=== PATIENT | female | born 1945 | race Caucasian/White ===

== ENCOUNTER 2016-03-09 16:39 | Emergency (ER) | payer OTHER, MEDICAID ==
[~2016-03-09] VITALS: Wt 63.4 kg
[~2016-03-09 16:39] MED LIST: ATOR10TA65 PO; BENA40TA41 PO; HYDR-762 PO; ISOS30TA5 PO; LORA1TAB PO; MECL25TA2 PO; ZOF8 PO
[2016-03-09] MEDS ORDERED: ONDANSETRON 4 MG INJ IV STA (18:39)
[2016-03-09] MEDS ORDERED: SOD CHLORIDE 0.9% 1,000 ML IV STA (18:39)
[2016-03-09] MEDS ORDERED: MECLIZINE 12.5 MG TAB PO ONE (19:00)
--- NOTE | 2016-03-09 19:02 | RADRPT ---
PROCEDURE: CR, chest CLINICAL INDICATION: Cough/abdomen pain. TECHNIQUE: AP chest. COMPARISON: Chest, 01/08/2016. FINDINGS: The heart is not enlarged. There is no acute infiltrate in the lungs. No pleural effusion. There is calcified atherosclerosis of the aortic arch. IMPRESSION: 1. Unremarkable chest x-ray. 2. Calcified atherosclerosis of the aortic arch. RPTAT: GG .Kevin Carmichael MD, MD Date Time Electronically viewed and signed by .Kevin Carmichael MD, MD on 03/09/2016 19:02 .Y/
[2016-03-09 19:35] LABS: BASOPHILS % 0.3 % (0.0-2.0); EOSINOPHILS # 0.1 10^3/ul (0.0-0.5); HEMATOCRIT 33.7 % (37.0-47.0); HEMOGLOBIN 11.4 g/dl (12.0-16.0); LYMPHOCYTES # 2.2 10^3/ul (0.8-2.9); LYMPHOCYTES % 39.4 % (15.0-51.0); MEAN CORPUSCULAR HEMOGLOBIN 28.1 pg (29.0-33.0); MEAN CORPUSCULAR HGB CONC 33.9 g/dl (32.0-37.0); MEAN CORPUSCULAR VOLUME 82.8 fl (82.0-101.0); MONOCYTE # 0.5 10^3/ul (0.3-0.9); MONOCYTES % 8.7 % (0.0-11.0); NEUTROPHIL # 2.7 10^3/ul (1.6-7.5); NEUTROPHILS % 49.6 % (39.0-77.0); PLATELET COUNT 241 10^3/UL (140-440); RED BLOOD COUNT 4.07 10^6/ul (4.20-5.40); RED CELL DISTRIBUTION WIDTH 15.5 % (11.5-14.5); UNCORRECTED WBC 5.5 10^3/ul (4.8-10.8); WHITE BLOOD COUNT 5.5 10^3/ul (4.8-10.8)
[2016-03-09 19:38] LABS: CONDITION 1; LH ANALYZER COMMENTS 1
[2016-03-09 19:44] LABS: ALBUMIN 4.3 g/dl (3.3-4.9); CHLORIDE 96 mmol/L (97-110); POTASSIUM 4.4 mmol/L (3.5-5.1); SODIUM 139 mmol/L (135-144)
[2016-03-09 19:46] LABS: BILIRUBIN,INDIRECT 0.2 mg/dl (0-1.1); BILIRUBIN,TOTAL 0.2 mg/dl (0.2-1.3); CREATININE 0.69 mg/dl (0.44-1.00)
[2016-03-09 19:47] LABS: ALANINE AMINOTRANSFERASE 27 IU/L (13-69); ALBUMIN/GLOBULIN RATIO 1.19; ALKALINE PHOSPHATASE 91 IU/L (42-121); ANION GAP 16 (8-16); ASPARTATE AMINO TRANSFERASE 35 IU/L (15-46); BLOOD UREA NITROGEN 18 mg/dl (7-20); CALCIUM 9.9 mg/dl (8.4-10.2); CARBON DIOXIDE 31 mmol/L (21-31); GLUCOSE 112 mg/dl (70-220); TOTAL PROTEIN 7.9 g/dl (6.1-8.1)
[2016-03-09 19:49] LABS: INR 1.03; PROTIME 13.5 Sec (12.2-14.2); PT RATIO 1.1
[2016-03-09 19:50] LABS: PARTIAL THROMBOPLASTIN TIME 26.5 Sec (25.0-35.0)
--- NOTE | 2016-03-09 20:06 | RADRPT ---
PROCEDURE: CT Brain without contrast. CLINICAL INDICATION: CALI, dizziness TECHNIQUE: A CT of the brain was performed utilizing axial imaging from the skull base through the vertex without IV contrast. Multiplanar reformatted images were made. Images were reviewed on a [facility] workstation. The CTDIvol is 45 mGy and the DLP is 720 mGycm. COMPARISON: Head CT January 15, 2015 FINDINGS: There is mild to moderate age appropriate diffuse cerebral volume loss with sulcal and ventricular d ilatation. No discrete extra-axial fluid collection or masses present. The ventricles are in the m idline and of normal contour and configuration. No intra-axial masses or regions of abnormal attenu ation are seen. There is no intracranial hemorrhage. There is normal aeration of the visualized paranasal sinuses. IMPRESSION: Atrophy. No intracranial hemorrhage or mass. .Kevin Schreiber MD, MD Date Time Electronically viewed and signed by .Kevin Schreiber MD, MD on 03/09/2016 20:06 .A/
[2016-03-09 20:10] LABS: TROPONIN-I < 0.012 ng/ml (0.00-0.12)
[2016-03-09 20:58] LABS: ADD UMIC YES; URINE BILIRUBIN (Dip) NEGATIVE (NEGATIVE); URINE BLOOD (Dip) TRACE (NEGATIVE); URINE COLOR LT. YELLOW (YELLOW); URINE GLUCOSE (Dip) NEGATIVE (NEGATIVE); URINE KETONES (Dip) NEGATIVE (NEGATIVE); URINE LEUKOCYTE ESTERASE (Dip) 1+ (NEGATIVE); URINE NITRITE (Dip) NEGATIVE (NEGATIVE); URINE TOTAL PROTEIN (Dip) NEGATIVE (NEGATIVE); URINE UROBILINOGEN (Dip) 0.2 E.U./dL (0.1-1.0)
[2016-03-09 21:07] LABS: SQUAMOUS EPITHELIAL CELL,UR RARE; URINE RBCS 0-2 /HPF (0)
[2016-03-09] MEDS ORDERED: ONDA4TAB14 PO (21:18)
[2016-03-09] MEDS ORDERED: MECL-77 PO (21:18)
--- NOTE | 2016-03-09 21:29 | ERD ---
ER Documentation Chief Complaint Date/Time DATE: 03/09/16 TIME: 21:21 Chief Complaint HEADACHE AND FEELING DIZZY SINCE THIS MORNING. NO NEURO DEFICIT. HPI This 70-year-old female presents with flulike the room is spinning and nausea since early this morning. She does not really have a headache. States when she tries to walk she has trouble because she feels like she is going to fall to the right. She has no focal weakness. Denies chest pain or shortness of breath. He is had no fevers or chills recently. ROS All systems reviewed and are negative except as per history of present illness. Medications Home Meds Active Scripts Ondansetron (Ondansetron Odt) 4 Mg Tab.rapdis, 4 MG PO Q6H Y for NAUSEA AND/OR VOMITING, #10 TAB Prov:JAZMYN PEREZ DO 03/09/16 Meclizine Hcl* (Meclizine Hcl*) 25 Mg Tablet, 25 MG PO Q8H Y for DIZZINESS, #30 TAB Prov:JAZMYN PEREZ DO 03/09/16 Lorazepam* (Lorazepam*) 1 Mg Tablet, 1 MG PO Q8H Y for ANXIETY, #10 TAB Prov:JOSE AU 01/08/16 Hydrocodone Bit-Acetaminophen* ([place]*) 10-325 Mg Tablet, 1 TAB PO Q6 Y for PAIN , #16 TAB Prov:TRAVIS WHITE MD 01/15/15 Ondansetron Hcl* (Zofran* ODT) 8 mg -ODT Tab.disper, 8 MG PO Q6 Y for NAUSEA AND /OR VOMITING, #10 TAB Prov:JACQUELINE LUQUE MD 12/23/14 Meclizine Hcl* (Antivert*) 25 Mg Tablet, 50 MG PO Q6H for DIZZINESS, #20 TAB Prov:JACQUELINE LUQUE MD 12/23/14 Reported Medications Atorvastatin Calcium (Atorvastatin Calcium) 10 Mg Tablet, 10 MG PO QHS, #30 TAB 01/15/15 Isosorbide Mononitrate* (Isosorbide Mononitrate*) 30 Mg Tab.er.24h, 30 MG PO DAILY, TAB 02/10/14 Benazepril Hcl* (Benazepril Hcl*) 40 Mg Tablet, 40 MG PO DAILY, TAB 02/10/14 Allergies Allergies: Coded Allergies: Penicillins (Verified Allergy, Mild, RASH, 01/15/15) aspirin (Verified Allergy, Mild, RAPID HEART RATE, 01/15/15) atenolol (Verified Allergy, Unknown, 01/15/15) PMhx/Soc History of Surgery: Yes (LEFT AND RIGHT 2011, LEFT FOOT, CHOLECYSTECTOMY) Anesthesia Reaction: No Hx Neurological Disorder: No Hx Respiratory Disorders: No Hx Cardiac Disorders: Yes (HTN, HIGH CHOLESTEROL) Hx Psychiatric Problems: No Hx Miscellaneous Medical Probl: No Hx Alcohol Use: No Hx Substance Use: No Hx Tobacco Use: No Physical Exam Vitals Vital Signs Date Time Temp Pulse Resp B/P Pulse Ox O2 Delivery O2 Flow Rate FiO2 03/09/16 16:44 98.3 90 20 134/63 99 Physical Exam Const: [] No distress Head: Atraumatic Eyes: Normal Conjunctiva, EOMI, PRL ENT: Normal External Ears, Nose and Mouth. Neck: Full range of motion..~ No meningismus. Resp: Clear to auscultation bilaterally Cardio: Regular rate and rhythm, no murmurs Abd: Soft, non tender, non distended. Normal bowel sounds Skin: No petechiae or rashes Back: No midline or flank tenderness Ext: No cyanosis, or edema Neur: Awake and alert and oriented 3, no focal deficits, para nerves difficult intact, cerebellar finger-nose normal Psych: Normal Mood and Affect Result Diagram: 03/09/16191903/09/161919 Results 24 hrs Laboratory Tests Test 03/09/16 19:20 03/09/16 20:35 Activated Partial Thromboplast Time 26.5Sec Alanine Aminotransferase (ALT/SGPT) 27IU/L Albumin 4.3g/dl Albumin/Globulin Ratio 1.19 Alkaline Phosphatase 91IU/L Anion Gap 16 Aspartate Amino Transf (AST/SGOT) 35IU/L Basophils # 0.010^3/ul Basophils % 0.3% Blood Morphology Comment Blood Urea Nitrogen 18mg/dl Calcium Level 9.9mg/dl Carbon Dioxide Level 31mmol/L Chloride Level 96mmol/L Creatinine 0.69mg/dl Direct Bilirubin 0.00mg/dl Eosinophils # 0.110^3/ul Eosinophils % 2.0% Globulin 3.60g/dl Glucose Level 112mg/dl Hematocrit 33.7% Hemoglobin 11.4g/dl INR International Normalized Ratio 1.03 Indirect Bilirubin 0.2mg/dl Lactic Acid Level 0.8mmol/L Lipase 77U/L Lymphocytes # 2.210^3/ul Lymphocytes % 39.4% Mean Corpuscular Hemoglobin 28.1pg Mean Corpuscular Hemoglobin Concent 33.9g/dl Mean Corpuscular Volume 82.8fl Mean Platelet Volume 8.0fl Monocytes # 0.510^3/ul Monocytes % 8.7% Neutrophils # 2.710^3/ul Neutrophils % 49.6% Nucleated Red Blood Cells # 0.010^3/ul Nucleated Red Blood Cells % 0.0/100WBC Platelet Count 04404^3/UL Potassium Level 4.4mmol/L Prothrombin Time 13.5Sec Prothrombin Time Ratio 1.1 Red Blood Count 4.0710^6/ul Red Cell Distribution Width 15.5% Sodium Level 139mmol/L Total Bilirubin 0.2mg/dl Total Protein 7.9g/dl Troponin I < 0.012ng/ml White Blood Count 5.510^3/ul Urine Bilirubin NEGATIVE Urine Clarity CLEAR Urine Color LT. YELLOW Urine Glucose NEGATIVE% Urine Hemoglobin TRACE Urine Ketones NEGATIVE Urine Leukocyte Esterase 1+ Urine Microscopic RBC 0-2/HPF Urine Microscopic WBC 5-10/HPF Urine Nitrite NEGATIVE Urine Specific [place] 1.010 Urine Squamous Epithelial Cells RARE Urine Total Protein NEGATIVE Urine Urobilinogen 0.2 E.U./dL Urine pH 6.0 Current Medications Medications (Trade) Dose Ordered Sig/Silver Route PRN Reason Start Time Stop Time Status Last Admin Dose Admin Sodium Chloride (NS) 1,000 ml @ 1,000 mls/hr Q1H STAT IV 03/09/16 18:39 03/09/16 19:38 DC 03/09/16 19:36 Ondansetron HCl (Zofran Inj) 4 mg ONCE STAT IV 03/09/16 18:39 03/09/16 18:40 DC 03/09/16 19:35 Meclizine HCl (Antivert) 25 mg ONCE ONCE PO 03/09/16 19:00 03/09/16 19:01 DC 03/09/16 19:35 Procedures/MDM Likely inner ear causes of vertigo and 15-year-old female. His abrasion risk factors neurovascular and cerebrovascular causes were tested for. Patient was given Zofran IV as well as an Antivert pill. After this she stated that she felt much better and asked if she could have a prescription for the same medication because it worked so well. She has no signs of cardiac ischemia stable on the monitor. CT is negative for any acute process. I discharged with primary care follow-up as well as return precautions for hospital. I'm giving her prescription for Zofran ODT as well as Antivert 25 mg. Recommending ENT follow-up through her regular doctor in both verbal and written instructions. EKG interpretation: Normal sinus rhythm 68, normal axis, no ST-T wave changes concerning for acute ischemia, normal intervals. Normal EKG Cardio monitor interpretation: Sinus rhythm without arrhythmias Chest x-ray interpretation: No acute process, no widened mediastinum no pneumothorax, no pulmonary edema, no fractures. Mild cardiomegaly and at this process of the aorta. CT head interpretation by myself: I see no acute process no hemorrhage no mass effect no midline shift no skull fractures Departure Diagnosis: Primary Impression: Vertigo Additional Impressions: Nausea Dizziness Normocytic anemia Condition: Stable Patient Instructions: Inner Ear Problems: Causes of Dizziness (Vertigo), Vertigo, Unspecified Additional Instructions: Llame al doctor MAANA y oneyda analia DENG PARA DENTRO DE 2-3 CARDENAS. Consigue un referral para un ENT DOCTOR. Dgale a la secretaria que nosotros le instruimos hacer esta deng.Avise o llame si rosario condicin se empeora antes de la deng. Regresa aqui si peor o no mejor. JAZMYN PEREZ DO Mar 09, 2016 21:29
[2016-03-09 22:00] VITALS: BP 105/54; PULSE 65; RESP 18; TEMP 97.6
== END 2016-03-09 22:00 | disposition home or self-care (01) ==
LOC: E/R 16:39
DX: R42 Dizziness and giddiness (principal); D64.9 Anemia, unspecified; I10 Essential (primary) hypertension; R10.9 Unspecified abdominal pain
CPT/HCPCS: 70450; 71010; 80053; 81001; 83605; 83690; 84484; 85025; 85610; 85730; J2405; J7030; 36415; 81003; 93005; 96374

== ENCOUNTER 2016-07-03 07:28 | Emergency (ER) | payer OTHER, MEDICAID ==
[~2016-07-03] VITALS: Ht 154.9 cm; Wt 66.0 kg
[~2016-07-03 07:28] MED LIST changes: +MECL-77 PO; +ONDA4TAB14 PO
[2016-07-03 07:30] VITALS: Ht 154.9 cm; Wt 66.0 kg
[2016-07-03] MEDS ORDERED: SOD CHLORIDE 0.9% 1,000 ML IV STA (07:33)
[2016-07-03] MEDS ORDERED: morphine 2 MG INJ IV STA (07:33)
[2016-07-03] MEDS ORDERED: ONDANSETRON 4 MG INJ IV STA (07:33)
[2016-07-03 08:02] LABS: ADD SCAN DIFF NO
--- NOTE | 2016-07-03 08:02 | ERA ---
ER Documentation Chief Complaint Date/Time DATE: 07/03/16 TIME: 08:00 Chief Complaint nausea /vomiting with epigastric pain x 3 days HPI 71-year-old female who presents the emergency room with 3 days of symptoms that include nonbloody nonbilious emesis, epigastric abdominal discomfort and headache. Symptoms are moderate, persistent and not alleviated by benzodiazepine provided by her primary care physician. She denies any diarrhea or constipation, no abdominal surgical history, no chest pain no exertional symptoms and no shortness of breath. ROS All systems reviewed and are negative except as per history of present illness. Medications Home Meds Active Scripts Ondansetron (Ondansetron Odt) 4 Mg Tab.rapdis, 4 MG PO Q6H Y for NAUSEA AND/OR VOMITING, #30 TAB Prov:DONALD CABALLERO MD 07/03/16 Reported Medications Omeprazole* (Omeprazole*) 40 Mg Capsule.dr, 40 MG PO DAILY, #30 CAP 07/03/16 Bupropion Hcl* (Bupropion XL*) 300 Mg Tab.sr.24h, 300 MG PO DAILY, TAB.SA 07/03/16 Alprazolam* (Alprazolam*) 0.25 Mg Tablet, 0.25 MG PO DAILY Y for ANXIETY, TAB 07/03/16 Benazepril Hcl* (Benazepril Hcl*) 40 Mg Tablet, 40 MG PO DAILY, TAB 02/10/14 Discontinued Reported Medications Atorvastatin Calcium (Atorvastatin Calcium) 10 Mg Tablet, 10 MG PO QHS, #30 TAB 01/15/15 Isosorbide Mononitrate* (Isosorbide Mononitrate*) 30 Mg Tab.er.24h, 30 MG PO DAILY, TAB 02/10/14 Discontinued Scripts Ondansetron (Ondansetron Odt) 4 Mg Tab.rapdis, 4 MG PO Q6H Y for NAUSEA AND/OR VOMITING, #10 TAB Prov:JAZMYN PEREZ DO 03/09/16 Meclizine Hcl* (Meclizine Hcl*) 25 Mg Tablet, 25 MG PO Q8H Y for DIZZINESS, #30 TAB Prov:JAZMYN PEREZ DO 03/09/16 Lorazepam* (Lorazepam*) 1 Mg Tablet, 1 MG PO Q8H Y for ANXIETY, #10 TAB Prov:JOSE AU 01/08/16 Hydrocodone Bit-Acetaminophen* ([place]*) 10-325 Mg Tablet, 1 TAB PO Q6 Y for PAIN , #16 TAB Prov:TRAVIS WHITE MD 01/15/15 Ondansetron Hcl* (Zofran* ODT) 8 mg -ODT Tab.disper, 8 MG PO Q6 Y for NAUSEA AND /OR VOMITING, #10 TAB Prov:JACQUELINE LUQUE MD 12/23/14 Meclizine Hcl* (Antivert*) 25 Mg Tablet, 50 MG PO Q6H for DIZZINESS, #20 TAB Prov:JACQUELINE LUQUE MD 12/23/14 Allergies Allergies: Coded Allergies: Penicillins (Verified Allergy, Mild, RASH, 07/03/16) aspirin (Verified Allergy, Mild, RAPID HEART RATE, 07/03/16) atenolol (Verified Allergy, Unknown, 07/03/16) PMhx/Soc History of Surgery: Yes (R Shoulder Metal Plate,L Foot Plastic Plate, Cholecystectomy,) Anesthesia Reaction: No Hx Neurological Disorder: No Hx Respiratory Disorders: No Hx Cardiac Disorders: Yes (HTN) Hx Psychiatric Problems: No Hx Miscellaneous Medical Probl: Yes (Dyslipidemia) Hx Alcohol Use: No Hx Substance Use: No Hx Tobacco Use: No FmHx Family History: No diabetes Physical Exam Vitals Vital Signs Date Time Temp Pulse Resp B/P Pulse Ox O2 Delivery O2 Flow Rate FiO2 07/03/16 10:32 74 18 144/79 99 Room Air 07/03/16 08:01 66 17 147/66 100 Room Air 07/03/16 07:30 98.4 83 18 196/86 97 Physical Exam General: Well developed, well nourished, no acute distress Head: Normocephalic, atraumatic. Eyes: Pupils equally reactive, EOM intact ENT: Moist mucous membranes Neck: Supple, no lymphadenopathy Respiratory: Lungs clear bilaterally, no distress Cardiovascular: RRR, no murmurs, rubs, or gallops Abdominal: Soft, non-tender, non-distended, no peritoneal signs : Deferred MSK: No edema, no unilateral swelling, 5/5 strength Neurologic: Alert and oriented, moving all extremities, normal speech, no focal weakness, no cerebellar signs, no meningismus Skin: No rash Psych: Normal mood Result Diagram: 07/03/16 0740 07/03/16 0740 Results 24 hrs Laboratory Tests Test 07/03/16 07:40 07/03/16 09:54 White Blood Count 4.010^3/ul Red Blood Count 4.2610^6/ul Hemoglobin 12.6g/dl Hematocrit 38.3% Mean Corpuscular Volume 89.9fl Mean Corpuscular Hemoglobin 29.6pg Mean Corpuscular Hemoglobin Concent 32.9g/dl Red Cell Distribution Width 14.6% Platelet Count 94657^3/UL Mean Platelet Volume 9.6fl Neutrophils % 54.1% Lymphocytes % 35.7% Monocytes % 8.0% Eosinophils % 1.5% Basophils % 0.5% Nucleated Red Blood Cells % 0.0/100WBC Neutrophils # 2.210^3/ul Lymphocytes # 1.410^3/ul Monocytes # 0.310^3/ul Eosinophils # 0.110^3/ul Basophils # 0.010^3/ul Nucleated Red Blood Cells # 0.010^3/ul Sodium Level 139mmol/L Potassium Level 3.9mmol/L Chloride Level 103mmol/L Carbon Dioxide Level 26mmol/L Anion Gap 14 Blood Urea Nitrogen 11mg/dl Creatinine 0.80mg/dl Glucose Level 96mg/dl Calcium Level 10.3mg/dl Total Bilirubin 0.5mg/dl Direct Bilirubin 0.00mg/dl Indirect Bilirubin 0.5mg/dl Aspartate Amino Transf (AST/SGOT) 34IU/L Alanine Aminotransferase (ALT/SGPT) 44IU/L Alkaline Phosphatase 91IU/L Troponin I < 0.012ng/ml Total Protein 8.4g/dl Albumin 4.6g/dl Globulin 3.80g/dl Albumin/Globulin Ratio 1.21 Lipase 73U/L Urine Color LT. YELLOW Urine Clarity CLEAR Urine pH 6.5 Urine Specific [place] <=1.005 Urine Ketones NEGATIVE Urine Nitrite NEGATIVE Urine Bilirubin NEGATIVE Urine Urobilinogen 0.2 E.U./dL Urine Leukocyte Esterase 2+ Urine Microscopic RBC 0-2/HPF Urine Microscopic WBC 5-10/HPF Urine Squamous Epithelial Cells FEW Urine Bacteria FEW Urine Hemoglobin TRACE Urine Glucose NEGATIVE% Urine Total Protein NEGATIVE Current Medications Medications (Trade) Dose Ordered Sig/Silver Route PRN Reason Start Time Stop Time Status Last Admin Dose Admin Sodium Chloride (NS) 1,000 ml @ 1,000 mls/hr Q1H STAT IV 07/03/16 07:33 07/03/16 08:32 DC 07/03/16 07:47 Morphine Sulfate (morphine) 2 mg ONCE STAT IV 07/03/16 07:33 07/03/16 07:34 DC 07/03/16 07:48 Ondansetron HCl (Zofran Inj) 4 mg ONCE STAT IV 07/03/16 07:33 07/03/16 07:34 DC 07/03/16 07:47 Procedures/MDM EKG, MONITORS, & DIAGNOSTIC IMAGING: EKG: I reviewed and interpreted a 12-lead EKG. Rhythm: Normal sinus rhythm Ectopy: None Intervals: No abnormalities ST segments: No elevations or depressions T waves: No contiguous inversions Chest x-ray: I reviewed and interpreted a 1 view of the chest Mediastinum: No enlargement Cardiac silhouette: No cardiomegaly Airspace: Clear lung sherman bilaterally without evidence of pneumothorax Bones: No evidence of fracture CT abdomen and pelvis: IMPRESSION: 1. Liver demonstrates mild surface nodularity, concerning for possible cirrhosis. 2. Gallbladder is surgically absent. 3. Aortoiliac atherosclerotic calcifications are present. 4. Sigmoid diverticulosis is seen without diverticulitis. 5. No bowel obstruction, mass, lymphadenopathy, or focal acute inflammatory process is identified. RPTAT: EE CT brain: No acute intracranial process LAB INTERPRETATION: No significant leukocytosis MEDICAL DECISION MAKING: The patient presents with nausea and vomiting. She also has abdominal pain and headache. Given her age she has a broad differential. While this is most likely a viral process I cannot rule out acute intracranial mass, acute intra- abdominal process such as obstruction, colitis. Low clinical concern for cholecystitis or appendicitis. No evidence of cardiac process. However, given the patient's age a broad workup was initiated including laboratory testing, diagnostic imaging. Patient will benefit from fluids and symptom control. ER COURSE: CT showed possible evidence of cirrhosis though no clinical signs or symptoms of this, no laboratory testing to suggest this as well. The patient has since tolerated oral intake and has resolution of symptoms. She has a repeat abdominal exam that is again benign. At this time I feel that outpatient follow -up is most appropriate. This is most consistent with likely viral process. We discussed return precautions including recurrent vomiting or pain. The patient will be discharged from the emergency room. I kept the patient and/or family informed of laboratory and diagnostic imaging results throughout the emergency room course. DISPOSITION PLAN: We discussed follow up with the patient's primary care doctor within 24 to 48 hours as needed. We also discussed return to the emergency room for worsening symptoms or worsening condition. Outpatient referral: None required Discharge Medications: Zofran Departure Diagnosis: Primary Impression: Nausea and vomiting Qualified Code: R11.2 - Non-intractable vomiting with nausea, unspecified vomiting type Condition: DONALD Rosado MD July 03, 2016 08:02
[2016-07-03 08:09] LABS: BASOPHILS % 0.5 % (0.0-2.0); EOSINOPHILS # 0.1 10^3/ul (0.0-0.5); EOSINOPHILS % 1.5 % (0.0-7.0); HEMATOCRIT 38.3 % (37.0-47.0); HEMOGLOBIN 12.6 g/dl (12.0-16.0); LYMPHOCYTES # 1.4 10^3/ul (0.8-2.9); LYMPHOCYTES % 35.7 % (15.0-51.0); MEAN CORPUSCULAR HEMOGLOBIN 29.6 pg (29.0-33.0); MEAN CORPUSCULAR HGB CONC 32.9 g/dl (32.0-37.0); MEAN CORPUSCULAR VOLUME 89.9 fl (82.0-101.0); MEAN PLATELET VOLUME 9.6 fl (7.4-10.4); MONOCYTE # 0.3 10^3/ul (0.3-0.9); NEUTROPHIL # 2.2 10^3/ul (1.6-7.5); NEUTROPHILS % 54.1 % (39.0-77.0); PLATELET COUNT 230 10^3/UL (140-415); RED BLOOD COUNT 4.26 10^6/ul (4.20-5.40); RED CELL DISTRIBUTION WIDTH 14.6 % (11.5-14.5)
[2016-07-03] MEDS ORDERED: BUPR300T36 PO (08:10)
[2016-07-03] MEDS ORDERED: ALPR0.254 PO (08:10)
[2016-07-03] MEDS ORDERED: OMEP40CA6 PO (08:11)
--- NOTE | 2016-07-03 08:17 | RADRPT ---
PROCEDURE: XR Chest. CLINICAL INDICATION: Pain TECHNIQUE: Single frontal chest x-ray. COMPARISON: 03/09/2016 FINDINGS: No acute infiltrate, pleural effusion or pneumothorax is identified. Cardiomediastinal silhouette i s within normal limits. Aortic atherosclerotic calcification is noted. The patient is status post right shoulder replacement. The osseous structures are otherwise remarkable for degenerative spondy losis of the spine. IMPRESSION: 1. No evidence of acute cardiopulmonary process. 2. Aortic atherosclerosis. RPTAT: EE .Agustin Howe MD, MD Date Time Electronically viewed and signed by .Agustin Howe MD, on 07/03/2016 08:17 .R/
[2016-07-03 08:24] LABS: ALANINE AMINOTRANSFERASE 44 IU/L (13-69); ALBUMIN 4.6 g/dl (3.3-4.9); ALBUMIN/GLOBULIN RATIO 1.21; ALKALINE PHOSPHATASE 91 IU/L (42-121); ANION GAP 14 (8-16); ASPARTATE AMINO TRANSFERASE 34 IU/L (15-46); BILIRUBIN,INDIRECT 0.5 mg/dl (0-1.1); BILIRUBIN,TOTAL 0.5 mg/dl (0.2-1.3); BLOOD UREA NITROGEN 11 mg/dl (7-20); CALCIUM 10.3 mg/dl (8.4-10.2); CARBON DIOXIDE 26 mmol/L (21-31); CHLORIDE 103 mmol/L (97-110); GLUCOSE 96 mg/dl (70-220); POTASSIUM 3.9 mmol/L (3.5-5.1); SODIUM 139 mmol/L (135-144); TOTAL PROTEIN 8.4 g/dl (6.1-8.1)
[2016-07-03 08:43] LABS: TROPONIN-I < 0.012 ng/ml (0.00-0.12)
--- NOTE | 2016-07-03 08:57 | RADRPT ---
PROCEDURE: CT Brain without contrast. CLINICAL INDICATION: Pain, headache TECHNIQUE: Routine CT scan of the brain was performed on a high resolution multi detector scanner without intravenous contrast. One or more of the following dose reduction techniques were used: Auto mated exposure control; Adjustment of the mA and/or kV according to patient size; Use of iterative r econstruction technique. CTDI = 44 mGy. DLP = 630 mGy-cm. COMPARISON: 03/09/2016 FINDINGS: Hemorrhage: No evidence of intracranial hemorrhage. Acute ischemic changes: No evidence of acute ischemic changes. Mass effect/Midline shift: None. Parenchymal volume: Within normal limits for age. Ventricular system: Concordant with parenchymal volume. Chronic changes: Mild chronic-appearing microvascular ischemic changes of the supratentorial white m atter. Atherosclerotic calcifications of the cavernous portions of both internal carotid arteries ar e present. Extracranial soft tissues: Unremarkable. Calvarium: No fractures. Paranasal sinuses: Visualized paranasal sinuses are clear. Mastoid air cells: Visualized mastoid air cells are clear. IMPRESSION: No acute intracranial abnormalities. Mild chronic-appearing microvascular ischemic changes of the supratentorial white matter, unchanged. RPTAT: AADD .Kishor Vanegas MD, MD Date Time Electronically viewed and signed by .Kishor Vanegas MD, on 07/03/2016 08:56 .B/
--- NOTE | 2016-07-03 09:09 | RADRPT ---
PROCEDURE: CT Abdomen and Pelvis without contrast. CLINICAL INDICATION: Abdominal pain, vomiting TECHNIQUE: CT of the abdomen and pelvis was performed on a multi-detector scanner without IV contr ast. Coronal and sagittal images were reformatted from the axial data set. One or more of the foll owing dose reduction techniques were used: automated exposure control, adjustment of the mA and/or kV according to patient size, use of iterative reconstruction technique. CTDI = 15.57 mGy. DLP = 83 3.74 mGy-cm. COMPARISON: None. FINDINGS: CT abdomen: The lung bases are clear. The heart size is normal, without pericardial effusion. Liver demonstrat es mild surface nodularity, concerning for possible cirrhosis. No gross evidence of focal hepatic m ass is identified. Gallbladder is surgically absent. Biliary tree, pancreas, spleen, adrenal gland s and kidneys are unremarkable. No urolithiasis or obstructive uropathy is identified. The stomach is grossly unremarkable. The aorta is of normal caliber. Aortic vascular calcifications are present. There is no retroperit castorena lymphadenopathy. The toni hepatis region is clear. CT pelvis: No bowel obstruction, free intraperitoneal air or abscess is identified. Sigmoid diverticulosis is seen without diverticulitis. The appendix is well visualized and normal. There is no colitis. Uri nary bladder, uterus and adnexa are grossly unremarkable. No pelvic mass, free fluid or lymphadenop athy is identified. The surrounding osseous structures are remarkable for degenerative spondylosis of the spine. No ost eolytic or osteoblastic lesion is detected. IMPRESSION: 1. Liver demonstrates mild surface nodularity, concerning for possible cirrhosis. 2. Gallbladder is surgically absent. 3. Aortoiliac atherosclerotic calcifications are present. 4. Sigmoid diverticulosis is seen without diverticulitis. 5. No bowel obstruction, mass, lymphadenopathy, or focal acute inflammatory process is identified. RPTAT: EE .Agustin Howe MD, Date Time Electronically viewed and signed by .Agustin Howe MD, MD on 07/03/2016 09:08 .R/
[2016-07-03 10:17] LABS: ADD UMIC YES; URINE BILIRUBIN (Dip) NEGATIVE (NEGATIVE); URINE BLOOD (Dip) TRACE (NEGATIVE); URINE COLOR LT. YELLOW (YELLOW); URINE GLUCOSE (Dip) NEGATIVE (NEGATIVE); URINE KETONES (Dip) NEGATIVE (NEGATIVE); URINE LEUKOCYTE ESTERASE (Dip) 2+ (NEGATIVE); URINE NITRITE (Dip) NEGATIVE (NEGATIVE); URINE TOTAL PROTEIN (Dip) NEGATIVE (NEGATIVE); URINE UROBILINOGEN (Dip) 0.2 E.U./dL (0.1-1.0)
[2016-07-03 10:32] VITALS: BP 144/79; PULSE 74; RESP 18
[2016-07-03 10:46] LABS: SQUAMOUS EPITHELIAL CELL,UR FEW; URINE RBCS 0-2 /HPF (0)
[2016-07-03 10:47] LABS: BACTERIA,URINE FEW
[2016-07-03] MEDS ORDERED: ONDA4TAB14 PO (11:04)
== END 2016-07-03 11:16 | disposition home or self-care (01) ==
LOC: E/R 07:28
DX: R11.2 Nausea with vomiting, unspecified (principal); R40.2252 Coma scale, best verbal response, oriented, at arrival to emergency department; I10 Essential (primary) hypertension; R51 Headache; R40.2142 Coma scale, eyes open, spontaneous, at arrival to emergency department; R40.2362 Coma scale, best motor response, obeys commands, at arrival to emergency department
CPT/HCPCS: 36415; 70450; 71010; 74176; 80053; 81001; 83690; 84484; 85025; 93005; 96374; 96375; 99285; J2270; J2405; J7030

== ENCOUNTER 2017-04-09 20:44 | Emergency (ER) | END 2017-04-10 03:57 | disposition home or self-care (01) ==

== ENCOUNTER 2018-02-17 11:50 | Emergency (ER) | payer OTHER, MEDICAID ==
[~2018-02-17] VITALS: Wt 58.6 kg
[~2018-02-17 11:50] MED LIST changes: -ATOR10TA65 PO; -BENA40TA41 PO; +BENA40TA56 PO; -HYDR-762 PO; -ISOS30TA5 PO; -LORA1TAB PO; -MECL-77 PO; +MECL12.574 PO; -MECL25TA2 PO; +OMEP40CA6 PO; -ONDA4TAB14 PO; -ZOF8 PO
[2018-02-17 11:52] VITALS: BP 187/77; PULSE 66; RESP 18; Wt 58.6 kg
--- NOTE | 2018-02-17 12:13 | ERD ---
ER Documentation Chief Complaint Chief Complaint FELL FROM BED, HAS BACK PAIN, DID NOT TAKE HTN MEDS YET HPI 72-year-old female, presents to the emergency department, complaining of right p osterior chest wall pain after sustaining a fall that occurred yesterday at home. No head trauma, no loss of consciousness. The pain is dull, constant, 5/10, worsened by cough and palpation. The patient denies chest pain, no shortness of breath. ROS All systems reviewed and are negative except as per history of present illness. Medications Home Meds Active Scripts Acetaminophen* (Tylenol*) 325 Mg Tablet, 2 TAB PO Q8 PRN for PAIN AND OR ELEVATED TEMP, #20 TAB Prov:LILIANA JUDD MD 02/17/18 Meclizine Hcl* (Antivert*) 12.5 Mg Tab, 12.5 MG PO Q6H PRN for DIZZINESS, #20 TAB Prov:DONALD CABALLERO MD 04/10/17 Reported Medications Omeprazole* (Omeprazole*) 40 Mg Capsule.dr, 40 MG PO DAILY, #30 CAP 07/03/16 Benazepril Hcl* (Benazepril Hcl*) 40 Mg Tablet, 40 MG PO DAILY, TAB 02/10/14 Allergies Allergies: Coded Allergies: Penicillins (Verified Allergy, Mild, RASH, 02/17/18) aspirin (Verified Allergy, Mild, RAPID HEART RATE, 02/17/18) atenolol (Verified Allergy, Unknown, 02/17/18) PMhx/Soc History of Surgery: Yes (R Shoulder Metal Plate,L Foot Plastic Plate,Ch olecystectomy,) Anesthesia Reaction: No Hx Neurological Disorder: No Hx Respiratory Disorders: No Hx Cardiac Disorders: Yes (HTN) Hx Psychiatric Problems: No Hx Miscellaneous Medical Probl: Yes (Anxiety) Hx Alcohol Use: No Hx Substance Use: No Hx Tobacco Use: No FmHx Family History: diabetes; No coronary disease Physical Exam Vitals Vital Signs Date Temp Pulse Resp B/P (MAP) Pulse Ox O2 O2 Flow FiO2 Time Delivery Rate 02/17/18 97.5 66 18 187/77 99 11:52 (113) Physical Exam Const: No acute distress Head: Atraumatic Eyes: Normal Conjunctiva ENT: Normal External Ears, Nose and Mouth. Neck: Full range of motion. No meningismus. Resp: Clear to auscultation bilaterally. Ecchymosis and tenderness to palpation of the posterior aspect of the right chest wall. Cardio: Regular rate and rhythm, no murmurs Abd: Soft, non tender, non distended. Normal bowel sounds Skin: No petechiae or rashes Back: No midline or flank tenderness Ext: No cyanosis, or edema Neur: Awake and alert Psych: Normal Mood and Affect Results 24 hrs Current Medications Medications Dose Sig/Silver Start Time Status Last (Trade) Ordered Route PRN Stop Time Admin Dose Reason Admin 650 mg ONCE ONCE 02/17/18 DC 02/17/18 Acetaminophen PO 12:30 02/17/18 12:25 (Tylenol 12:31 Tab) DIAGNOSTIC IMAGING REPORT Patient: KERA SHIPMAN : 1945 Age: 72 Sex: F MR #: [id number] DOS: 02/17/18 1218 Ordering MD: LILIANA JUDD MD Location: [facility] Room/Bed: PROCEDURE: XR Ribs. CLINICAL INDICATION: Rt post CWP s/p fall TECHNIQUE: 4 views of the right ribs were obtained. The images were reviewed on a PACS workstation. COMPARISON: CR CHEST 03/09/2016; CR CHEST 01/08/2016; CR CHEST 01/03/2012 FINDINGS: There is no evidence for a rib fracture. The underlying lung parenchyma is intact without evidence for pneumothorax. Calcified atherosclerosis of the thoracic aorta. Right shoulder arthroplasty. IMPRESSION: No acute rib fracture identified. No pneumothorax. RPTAT:AAJJ Physician Elza Date Time Electronically viewed and signed by Physician Elza on 02/17/2018 13:45 RF/ CC: LILIANA JUDD MD [id number] Procedures/MDM Differential diagnosis include but not limited to: Soft tissue contusion, sprain/strain, herniated disk, muscle spasm, fracture. Neurovascular exam trip sly intact. no clinical findings suggestive of fracture, no acute deformity, no edema, no rashes. Physical examination and clinical presentation consistent most likely with chest wall contusion. During the ED course the patient remained stable, without complaints. Results and clinical impression discussed with patient who agrees with management. The patient is stable to be treated outpatient and will be discharged home with recommendations and close monitoring The patient was instructed to follow up with the primary care provider in the next 48h. If symptoms persist, worsen or new symptoms develop, then patient should return to the ED immediately. Instructions explained and given to patient with acknowledgment and demonstrated understanding. Disclaimer: Inadvertent spelling and grammatical errors are likely due to EHR/dictation software use and do not reflect on the overall quality of patient care. Also, please note that the electronic time recorded on this note does not necessarily reflect the actual time of the patient encounter. Departure Diagnosis: Primary Impression: Chest wall contusion Condition: Stable Additional Instructions: Muchas edmundo por [facility] para rosario servicio. Esperamos que en rosario visita a la ksenia de emergencia rosario problema medico haya sido solucionado y que se sienta mucho mejor. Para estar seguros que rosario mejoria sigue en proceso, le pedimos el favor de hacer analia uli de seguimiento medico con rosario doctor primario en los proximos 2-4 bain. Lleve con usted estos documentos y las medicinas recetadas. Si kan sintomas empeoran, NO SE ESPERE, por favor regrese a ksenia de emergencia INMEDIATAMENTE. En oscar que usted no tenga un mdico de atencin primaria: Llame al mdico o clnica comunitaria de referencia que aparece abajo reba la s horas de consultorio para hacer analia uli para que le vean. CLINICAS: [facility] [phone] [facility] [phone] [facility] 576 [phone] [facility] [phone] [facility] 075 [phone] [id number] [facility]. [phone] LILIANA BUCHANAN MD Feb 17, 2018 12:13
[2018-02-17] MEDS ORDERED: ACETAMINOPHEN 325 MG TAB PO ONE (12:30)
[2018-02-17] MEDS ORDERED: ACET325T33 PO (14:01)
== END 2018-02-17 14:14 | disposition home or self-care (01) ==
LOC: FTE 11:50
DX: S20.211A Contusion of right front wall of thorax, initial encounter (principal); I10 Essential (primary) hypertension; W06.XXXA Fall from bed, initial encounter; Y92.009 Unspecified place in unspecified non-institutional (private) residence as the place of occurrence of the external cause
CPT/HCPCS: 71100